=== PATIENT | male | born 1975 | race Caucasian/White ===

== ENCOUNTER 2024-01-07 10:11 | Emergency (ER) | payer BC ==
[2024-01-07 10:17] VITALS: BP 125/84; PULSE 82; RESP 18; TEMP 97.6; BMI 27.1
[2024-01-07] MEDS ORDERED: KETOROLAC TROMETHAMINE 30 MG/1 ML VIAL ONE (11:47)
[2024-01-07 11:50] LABS: BASO % 0.8 % (0-2.0); EOS % 2.6 % (0-4.5); HEMATOCRIT 44.7 % (35.4-49); HEMOGLOBIN 15.4 GM/dL (11.7-16.9); LYMPH % 29.9 % (8-40); MCH 31.7 pg (25.7-33.7); MCHC 34.5 g/dl (32.0-35.9); MEAN CELL VOLUME 91.9 fl (80-96); MEAN PLT VOLUME 7.8 fl (7.5-11.1); MONO % 10.5 % (3.8-10.2); NEUT % 56.2 % (42.8-82.8); PLATELET COUNT 175 10^3/uL (134-434); RBC 4.87 M/mm3 (4.00-5.60); RDW 13.3 % (11.9-15.9); WHITE BLOOD COUNT 6.8 K/mm3 (4.0-10.0)
[2024-01-07] MEDS: KETOROLAC TROMETHAMINE 15 MG/ML VIAL IM ONE (11:57)
[2024-01-07 12:17] LABS: POTASSIUM 4.6 mmol/L (3.5-5.1)
[2024-01-07 12:20] LABS: ALBUMIN 3.8 g/dl (3.4-5.0); CALCIUM 9.2 mg/dL (8.5-10.1)
[2024-01-07 12:23] LABS: CREATININE 0.9 mg/dL (0.55-1.3)
[2024-01-07 12:26] LABS: BILIRUBIN,TOTAL 0.3 mg/dL (0.2-1); TOT PROT 6.8 g/dl (6.4-8.2)
[2024-01-07 13:03] LABS: PH,URINE 7.5 (5.0-8.0); URINE APPEARANCE CLEAR; URINE BILIRUBIN NEGATIVE (NEGATIVE); URINE COLOR ORANGE; URINE GLUCOSE (UA) NEGATIVE (NEGATIVE); URINE KETONE NEGATIVE (NEGATIVE); URINE LEUK ESTERASE NEGATIVE (NEGATIVE); URINE NITRITE NEGATIVE (NEGATIVE); URINE PROTEIN NEGATIVE (NEGATIVE); URINE UROBILINOGEN 0.2 mg/dL (0.2-1.0)
== END 2024-01-07 13:41 | disposition home or self-care (01) ==
LOC: JER 10:11
PROC: 3E0133Z Introduction of Anti-inflammatory into Subcutaneous Tissue, Percutaneous Approach (ICD-10-PCS; principal; 2024-01-07)
DX: U07.1 COVID-19 (principal); R10.9 Unspecified abdominal pain
CPT/HCPCS: 0241U-QW; 36415; 74176-TC; 80053; 81003; 84484; 85025; 87086; 99284-25